=== PATIENT | female | born 1965 | race Two or more races ===

== ENCOUNTER 2024-06-03 20:49 | Emergency (ER) | payer MEDICAID ==
[~2024-06-03] VITALS: Ht 160 cm; Wt 100.2 kg
[2024-06-03] MEDS ORDERED: ACETAMINOPHEN ES 500 MG TABLET ONE (22:11)
[2024-06-03] MEDS: ACETAMINOPHEN ES 500 MG TABLET PO ONE (22:14)
[2024-06-03 23:15] VITALS: BP 128/77; TEMP 98.2; O2SAT 99
== END 2024-06-03 23:16 | disposition home or self-care (01) ==
LOC: ER 20:55
DX: T23.101A Burn of first degree of right hand, unspecified site, initial encounter (principal); X10.0XXA Contact with hot drinks, initial encounter; Y93.89 Activity, other specified; Y92.89 Other specified places as the place of occurrence of the external cause; Y99.8 Other external cause status